=== PATIENT | female | born 1965 | race Two or more races ===

== ENCOUNTER 2025-04-16 06:13 | Day surgery (SDC) | payer BC, SELFPAY ==
[2025-04-16 11:55] VITALS: BP 148/83; BMI 28.2
[2025-04-16 12:12] VITALS: BMI 28.2
[2025-04-16 14:41] VITALS: BP 91/47
[2025-04-16 14:45] VITALS: BP 88/44
[2025-04-16 15:00] VITALS: BP 93/49
[2025-04-16 15:15] VITALS: BP 95/53
== END 2025-04-16 16:10 | disposition home or self-care (01) ==
LOC: SDS 06:13
PROVIDERS: ATTENDING PHYSICIAN Internal Medicine Gastroenterology; FAMILY PHYSICIAN Nurse Practitioner
DX: K20.90 Esophagitis, unspecified without bleeding (principal); I85.00 Esophageal varices without bleeding; I86.4 Gastric varices; K74.60 Unspecified cirrhosis of liver; K31.89 Other diseases of stomach and duodenum; K76.6 Portal hypertension; K83.8 Other specified diseases of biliary tract; K80.20 Calculus of gallbladder without cholecystitis without obstruction
CPT/HCPCS: 43259